=== PATIENT | male | born 1995 | race African-American/Black ===

== ENCOUNTER 2018-03-29 15:33 | Emergency (ER) | payer OTHER ==
[~2018-03-29] VITALS: Ht 170.2 cm; Wt 69.9 kg
[2018-03-29 15:45] VITALS: TEMP 98.1
[2018-03-29 17:24] VITALS: BP 110/60
== END 2018-03-29 17:24 | disposition home or self-care (01) ==
LOC: ED 15:33
DX: T78.40XA Allergy, unspecified, initial encounter (principal)
CPT/HCPCS: 36415; 96365; 96374; 96375; 99284